=== PATIENT | male | born 1990 | race American Indian/Alaskan Native ===

== ENCOUNTER 2017-02-28 14:12 | Emergency (ER) | payer SELFPAY | END 2017-02-28 15:31 | disposition left against medical advice (07) | LOC: ED 14:12 | DX: S69.80XA Other specified injuries of unspecified wrist, hand and finger(s), initial encounter (principal); Z53.21 Procedure and treatment not carried out due to patient leaving prior to being seen by health care provider ==

== ENCOUNTER 2017-03-01 08:26 | Emergency (ER) | payer SELFPAY ==
[2017-03-01 08:35] VITALS: BP 145/99
[2017-03-01] MEDS ORDERED: MOTRIN PO ONE (12:25)
--- NOTE | 2017-03-01 12:25 | Emergency Department Report ---
ED Upper Extremity Inj HPI - General Chief Complaint: Extremity Injury, Upper Stated Complaint: RT HAND INJURY Time Seen by Provider: 03/01/17 12:09 Source: patient Mode of arrival: Ambulatory Limitations: No Limitations - History of Present Illness Initial Comments: 26-year-old male past medical history none presents with complaint of right middle finger and ring finger pain and mild hand pain status post a lawnmower falling onto his hand yesterday while unloading a truck. Patient states that lawnmower was off and as he unloaded it it fell onto his right fingertip/finger region. Denies any lacerations, small abrasion to PIP joint overlying middle finger but patient states that fingers have become swollen since yesterday and painful when he bends. He states he has some mild hand pain as well. Denies any other injuries. States that his last tetanus shot was less than 2 years ago. Denies any paresthesias in the hand or fingers. Visible mild swelling to her distal fingertips. States that objects only made contact with his fingers momentarily MD Complaint: Injury to:: right, hand, finger Onset/Timin -: days(s) Other Extremity Injury: Fingers: Right (pain and swelling right middle finger at PIP joint and right ring finger at DIP joint), Hand: Right Handedness: right Place: work Severity scale (0 -10): 6 Improves With: cold therapy, immobilization, rest Worsens With: movement of extremity Context: direct blow - Related Data Previous Rx's Medication Instructions Recorded Last Taken Type Ibuprofen Oral Liqd [Motrin] 600 mg PO TID PRN #1 bottle 03/01/17 Unknown Rx Allergies Allergy/AdvReac Type Severity Reaction Status Date / Time shellfish derived Allergy Swelling Verified 03/01/17 08:35 ED Review of Systems ROS: Stated complaint: RT HAND INJURY Other details as noted in HPI Constitutional: denies: chills, fever Eyes: denies: eye pain, eye discharge, vision change ENT: denies: ear pain, throat pain Respiratory: denies: cough, shortness of breath, wheezing Cardiovascular: denies: chest pain, palpitations Endocrine: no symptoms reported Gastrointestinal: denies: abdominal pain, nausea, diarrhea Genitourinary: denies: urgency, dysuria Musculoskeletal: as per HPI. denies: back pain, joint swelling, arthralgia Skin: denies: rash, lesions Neurological: denies: headache, weakness, paresthesias Psychiatric: denies: anxiety, depression Hematological/Lymphatic: denies: easy bleeding, easy bruising ED Past Medical Hx - Past Medical History Previous Medical History?: Yes Hx Hypertension: Yes - Surgical History Past Surgical History?: No - Social History Smoking Status: Current Every Day Smoker Substance Use Type: Alcohol - Medications Home Medications: Home Medications Medication Instructions Recorded Confirmed Last Taken Type Ibuprofen Oral Liqd [Motrin] 600 mg PO TID PRN #1 bottle 03/01/17 Unknown Rx ED Physical Exam - General Limitations: No Limitations General appearance: alert, in no apparent distress - Head Head exam: Present: atraumatic, normocephalic - Eye Eye exam: Present: normal appearance, PERRL, EOMI - ENT ENT exam: Present: mucous membranes moist - Neck Neck exam: Present: normal inspection - Respiratory Respiratory exam: Present: normal lung sounds bilaterally. Absent: respiratory distress - Cardiovascular Cardiovascular Exam: Present: regular rate, normal rhythm. Absent: systolic murmur, diastolic murmur, rubs, gallop - GI/Abdominal GI/Abdominal exam: Present: soft, normal bowel sounds - Rectal Rectal exam: Present: deferred - Extremities Exam Extremities exam: Present: normal inspection - Expanded Upper Extremity Exam Right Shoulder Exam: Present: normal inspection, full ROM Upper Arm exam: Present: normal inspection, full ROM Elbow exam: Present: normal inspection, full ROM Forearm Wrist exam: Present: normal inspection, full ROM Hand Wrist exam: Present: normal inspection, full ROM (wrist flexion and extension fully intact. Range of motion all fingers intact MCP's and DIPs and PIPs), swelling (swelling to right middle finger PIP joint and right ring finger DIP joint) Neuro motor exam: Present: wrist extension intact, thumb opposition intact, thumb IP flexion intact, thumb adduction intact, fingers 2-5 abduction intact Vascular: Present: normal capillary refill (capillary refill less than 1 second finger), radial pulse, brachial pulse (distal radial brachial and ulnar pulses intact) - Back Exam Back exam: Present: normal inspection - Neurological Exam Neurological exam: Present: alert, oriented X3 - Psychiatric Psychiatric exam: Present: normal affect, normal mood - Skin Skin exam: Present: warm, dry, intact, normal color. Absent: rash ED Course Vital Signs 03/01/17 03/01/17 08:30 12:43 Temperature 98.5 F Pulse Rate 56 L Respiratory 20 16 Rate Blood Pressure 145/99 O2 Sat by Pulse 99 Oximetry ED Medical Decision Making - Medical Decision Making A/P: Finger contusion right hand 1-small abrasion less than half a centimeter superficial. Tetanus is up-to- date. 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 This is a benign lesion as per [email or web address]. I will give patient follow up with orthopedics Critical care attestation.: If time is entered above; I have spent that time in minutes in the direct care of this critically ill patient, excluding procedure time. ED Disposition Clinical Impression: Sprain of finger of right hand Qualifiers: Encounter type: initial encounter Finger: middle finger Sprain of finger site: interphalangeal joint Qualified Code(s): S63.632A - Sprain of interphalangeal joint of right middle finger, initial encounter Contusion of finger of right hand Qualifiers: Encounter type: initial encounter Finger: middle finger Damage to nail status: without damage Qualified Code(s): S60.031A - Contusion of right middle finger without damage to nail, initial encounter Disposition: - TO HOME OR SELFCARE Is pt being admited?: No Does the pt Need Aspirin: No Condition: Stable Instructions: Finger Sprain (ED), RICE Therapy (ED), Contusion in Adults (ED) Prescriptions: Ibuprofen Oral Liqd [Motrin] 600 mg PO TID PRN #1 bottle PRN Reason: Pain Referrals: TERA COVINGTON MD [Staff Physician] - 3-5 Days [facility] [place]] - 3-5 Days [facility] [Provider Group] - 3-5 Days Forms: Work/School Release Form(ED) Time of Disposition: 13:12
--- NOTE | 2017-03-01 12:47 | XRay Report ---
RIGHT HAND, 3 views: History: Injury, pain, finger injury. The bony architecture is intact. Bony alignment is normal. No soft tissue abnormalities are seen. The joint spaces appear preserved. There is a bony protuberance on the proximal phalanx of the fifth digit which probably represents a small exostosis or possibly an enchondroma. IMPRESSION: No acute injury is appreciated.
== END 2017-03-01 13:21 | disposition home or self-care (01) ==
LOC: ED 08:26
DX: S63.632A Sprain of interphalangeal joint of right middle finger, initial encounter (principal); S63.634A Sprain of interphalangeal joint of right ring finger, initial encounter; I10 Essential (primary) hypertension; F17.210 Nicotine dependence, cigarettes, uncomplicated; Z91.013 Allergy to seafood; W20.8XXA Other cause of strike by thrown, projected or falling object, initial encounter; Y93.89 Activity, other specified; Y92.89 Other specified places as the place of occurrence of the external cause; Y99.8 Other external cause status
CPT/HCPCS: 99283

== ENCOUNTER 2017-06-01 10:58 | Emergency (ER) | payer SELFPAY ==
--- NOTE | 2017-06-01 13:56 | Cat Scan Report ---
CT HEAD WITHOUT CONTRAST: HISTORY: Headache, trauma. Serial contiguous axial images were obtained through the cranium. Intravenous contrast material was not administered. The ventricles are normal in size and appearance. There is no mass effect or midline shift. No areas of abnormally increased or decreased attenuation are seen. No mass lesion is seen. A chronic left medial orbital wall fracture is identified. No acute fracture. There is moderate mucosal thickening in the visualized right maxillary sinus. The remaining paranasal sinuses are clear. IMPRESSION: No acute intracranial process identified. Normal CT of the brain parenchyma. Chronic left medial orbital wall fracture. Chronic right maxillary sinusitis.
[2017-06-01] MEDS ORDERED: TYLENOL PO ONE (21:05)
[2017-06-01] MEDS ORDERED: TYLENOL ONE (21:10)
[2017-06-01 23:51] VITALS: BP 145/100
[2017-06-02] MEDS ORDERED: XYLOCAINE TOPICAL 4% TP ONE (00:04)
--- NOTE | 2017-06-02 00:08 | Emergency Department Report ---
ED Headache HPI - General Chief Complaint: Headache Stated Complaint: HEADACHE Time Seen by Provider: 06/01/17 23:45 Source: patient Exam Limitations: no limitations - History of Present Illness Initial Comments: This is a 27-year-old male, the patient is previously unknown to this provider. The patient presents to the ER with headache. The headache started 3 days ago. It was fairly rapid in onset. It reached maximal intensity within a few hours. It has been waxing and waning over the past few days. Patient reports never having had a headache like this before, and he reports that it is the most intense headache of his life. There is no neck stiffness, no vomiting, low loss of vision, no weakness or numbness, no fever, no sore throat. Patient denies recent trauma, he is concerned about remote trauma from his left-sided periorbital region, and concerned about a "vein." Timing/Duration: other (3 days) Quality: moderate Head Injury Location: frontal, temporal, other (right-sided) Recent Head Trauma: no recent headache/trauma Modifying Factors: improves with: other (patient endorses no exacerbating or relieving factors) Allergies/Adverse Reactions: Allergies shellfish derived Allergy (Verified 03/01/17 08:35) Swelling Home Medications: Ambulatory Orders Acetaminophen [Tylenol Arthritis] 650 mg PO Q6HR PRN #30 tablet.er 06/02/17 Metoclopramide [Reglan] 10 mg PO QID PRN #30 tablet 06/02/17 ED Review of Systems ROS: Stated complaint: HEADACHE Other details as noted in HPI Constitutional: denies: fever Eyes: denies: eye discharge ENT: denies: throat pain Respiratory: denies: cough Cardiovascular: denies: chest pain Gastrointestinal: denies: vomiting Neurological: headache ED Past Medical Hx - Past Medical History Previous Medical History?: Yes Hx Hypertension: Yes - Surgical History Past Surgical History?: No - Social History Smoking Status: Never Smoker Substance Use Type: None - Medications Home Medications: Home Medications Medication Instructions Recorded Confirmed Last Taken Type Acetaminophen [Tylenol Arthritis] 650 mg PO Q6HR PRN #30 tablet.er 06/02/17 Unknown Rx Metoclopramide [Reglan] 10 mg PO QID PRN #30 tablet 06/02/17 Unknown Rx ED Physical Exam - General Limitations: No Limitations General appearance: alert, in no apparent distress - Head Head exam: Present: atraumatic, normocephalic - Eye Eye exam: Present: normal appearance, PERRL, EOMI, other (visual acuity intact to finger counting, color perception, reading at a close distance). Absent: nystagmus - ENT ENT exam: Present: mucous membranes moist - Neck Neck exam: Present: normal inspection, full ROM. Absent: tenderness, meningismus - Respiratory Respiratory exam: Present: normal lung sounds bilaterally. Absent: respiratory distress, wheezes, rales, rhonchi, stridor, chest wall tenderness, accessory muscle use, decreased breath sounds, prolonged expiratory - Cardiovascular Cardiovascular Exam: Present: regular rate, normal rhythm, normal heart sounds. Absent: bradycardia, tachycardia, irregular rhythm, systolic murmur, diastolic murmur, rubs, gallop - GI/Abdominal GI/Abdominal exam: Present: soft, normal bowel sounds. Absent: distended, tenderness, guarding, rebound, rigid, pulsatile mass - Rectal Rectal exam: Present: deferred - Extremities Exam Extremities exam: Present: normal inspection, full ROM. Absent: normal capillary refill, pedal edema, joint swelling, calf tenderness - Back Exam Back exam: Present: normal inspection, full ROM. Absent: tenderness, CVA tenderness (R), CVA tenderness (L), muscle spasm, paraspinal tenderness, vertebral tenderness - Neurological Exam Neurological exam: Present: alert, oriented X3, normal gait, other (Extraocular movements intact. Tongue midline. No facial droop. Facial sensation intact to light touch in the V1, V2, V3 distribution bilaterally. 5 and 5 strength in 4 extremities.. Sensation is intact to light touch in 4 extremities.). Absent : motor sensory deficit - Psychiatric Psychiatric exam: Present: normal affect, normal mood - Skin Skin exam: Present: warm, dry, intact, normal color. Absent: rash ED Course Vital Signs 06/01/17 06/01/17 06/01/17 12:31 21:02 22:09 Temperature 98.2 F 97.4 F L Pulse Rate 73 64 Respiratory 18 16 18 Rate Blood Pressure 160/108 Blood Pressure 169/95 [Left] O2 Sat by Pulse 99 99 Oximetry 06/01/17 06/01/17 23:50 23:51 Temperature 98.3 F Pulse Rate 58 L Respiratory 18 18 Rate Blood Pressure Blood Pressure 145/100 [Left] O2 Sat by Pulse 99 100 Oximetry ED Medical Decision Making - Lab Data Vital Signs 06/01/17 06/01/17 06/01/17 12:31 21:02 22:09 Temperature 98.2 F 97.4 F L Pulse Rate 73 64 Respiratory 18 16 18 Rate Blood Pressure 160/108 Blood Pressure 169/95 [Left] O2 Sat by Pulse 99 99 Oximetry 06/01/17 06/01/17 23:50 23:51 Temperature 98.3 F Pulse Rate 58 L Respiratory 18 18 Rate Blood Pressure Blood Pressure 145/100 [Left] O2 Sat by Pulse 99 100 Oximetry - Radiology Data Radiology results: report reviewed, image reviewed Noncontrast CT scan of the brain is negative for acute findings, chronic left- sided facial fractures noted - Medical Decision Making Differential diagnosis: Migraine headache, tension headache, cluster headache, ischemic stroke, subarachnoid hemorrhage Assessment and plan: 27-year-old male, right-sided temporal headache, present for 3 days, fairly rapid in onset, worst headache of life, no similar headaches prior to this. Patient is afebrile, with reassuring vital signs, has a GCS of 15, with an NIH score of 0, clinically sober, and exhibits decision-making capacity. Noncontrast CT scan of the brain was negative. Extensive and prolonged discussion had with the patient regarding his headache, and need for evaluation for possible subarachnoid hemorrhage. I offered the patient is spinal tap, which he refused. I offered the patient is CT angiogram of the head and neck, which he refused. The patient is going to sign out AGAINST MEDICAL ADVICE, the patient is alert and oriented 3, exhibits decision-making capacity, and is free from distracting injury. The patient understands the risks of leaving with an undiagnosed subarachnoid hemorrhage, including , disability, paralysis, loss of quality of life. Patient verbalizes understanding to all this in his own words, and his conversation is witnessed by nurse Nova Castaneda The patient understands that he can return to the ER right away if and when he changes his mind, and he was treated with a sphenopalatine ganglion block which somewhat improved his symptoms. He states he will return in the morning for further evaluation. Critical care attestation.: If time is entered above; I have spent that time in minutes in the direct care of this critically ill patient, excluding procedure time. ED Disposition Clinical Impression: Headache Disposition: [id number] LEFT AGAINST MED ADVICE Is pt being admited?: No Does the pt Need Aspirin: No Condition: Undetermined Instructions: Acute Headache (ED) Additional Instructions: As we discussed, you have left the hospital/emergency room AGAINST MEDICAL ADVICE. By leaving, you risked , disability, paralysis, permanent loss of quality of life. The ER is open 24 hours a day, 7 days a week. It never closes. Please return to the emergency room right away if and when you change your mind. If you decide not to return to the emergency room, please follow-up with the listed physician referrals as soon as possible. If the patient decides to return to the ER in the morning as he states he will, nursing staff should order CBC, basic metabolic panel PTT/INR. Case should be discussed with the attending solar installation crew supervisor, however a fluoroscopically guided spinal tap is strongly recommended. The patient should not take aspirin, Naprosyn, Motrin, ibuprofen. Patient should take the pain medication, nausea medication as directed. Prescriptions: Acetaminophen [Tylenol Arthritis] 650 mg PO Q6HR PRN #30 tablet.er PRN Reason: Pain Metoclopramide [Reglan] 10 mg PO QID PRN #30 tablet PRN Reason: Nausea Referrals: PRIMARY CARE, [Primary Care Provider] - 3-5 Days BEST RIOS MD [Staff Physician] - 3-5 Days ALLY LARA MD [Staff Physician] - 3-5 Days FOREST HYATT MD [Staff Physician] - 3-5 Days MIGUELITO BOYER MD [Staff Physician] - 3-5 Days
== END 2017-06-02 00:27 | disposition left against medical advice (07) ==
LOC: ED 10:58
DX: R51 Headache (principal); I10 Essential (primary) hypertension
CPT/HCPCS: 70450

== ENCOUNTER 2017-10-02 14:03 | Emergency (ER) | payer SELFPAY ==
[2017-10-02 14:51] VITALS: BP 144/83
[2017-10-02] MEDS ORDERED: TYLENOL PO ONE (14:51)
[2017-10-02] MEDS ORDERED: TYLENOL ONE (14:52)
== END 2017-10-02 20:15 | disposition left against medical advice (07) ==
LOC: ED 14:03
DX: H57.8 Other specified disorders of eye and adnexa (principal); Z53.21 Procedure and treatment not carried out due to patient leaving prior to being seen by health care provider